=== PATIENT | female | born 1955 | race African-American/Black ===

== ENCOUNTER 2018-11-05 13:54 | Emergency (ER) | payer OTHER ==
[~2018-11-05] VITALS: Ht 167.6 cm; Wt 85.0 kg
[2018-11-05] MEDS ORDERED: SODIUM CHLORIDE 0.9% 1000ML BAG (SEPSIS BOLUS) IV ONE (14:15)
[2018-11-05] MEDS ORDERED: HYDROCORTISONE SOD SUCCINATE 100 MG/2 ML VIAL IV ONE (14:15)
[2018-11-05] MEDS ORDERED: VANCOMYCIN 1 G PREMIX 200 ML IV ONE (14:15)
[2018-11-05 14:49] LABS: BASOPHILS % 0.8 % (0.0-2.0); EOSINOPHILS % 2.1 % (0.0-5.0); HEMATOCRIT. 32.8 % (36.0-48.0); HEMOGLOBIN. 10.8 g/dL (12.0-16.0); LYMPHOCYTES % 28.7 % (20.0-50.0); MEAN CORPUSCULAR VOLUME 87.7 fL (81.0-99.0); MEAN PLATELET VOLUME 10.6 fl (7.4-10.4); MONOCYTES % 7.7 % (2.0-8.0); NEUTROPHILS % 60.7 % (40.0-76.0); PLATELET 95 x1000/uL (130-400); RED BLOOD CELL COUNT 3.73 mill/uL (4.2-5.4)
[2018-11-05 14:55] LABS: INR 1.3; PROTHROMBIN TIME 12.9 sec (9.6-11.0)
[2018-11-05 14:56] LABS: CHLORIDE 111 mEq/L (98-107)
[2018-11-05] MEDS: PIPERACILLIN/TAZ 3.375G PREMIX 50 ML IV ONE ×2 (15:02→15:17)
[2018-11-05 15:03] LABS: ETHANOL BLOOD < 10 mg/dL; LDL CHOLESTEROL 25 mg/dL (5-100)
[2018-11-05 15:04] LABS: CREATINE KINASE 66 IU/L (26-192)
[2018-11-05 15:08] LABS: CREATINE KINASE MB FRACTION < 1.0 ng/mL (0.5-3.6)
[2018-11-05] MEDS ORDERED: ASPIRIN 81MG TABLET PO ONE (15:45)
[2018-11-05 19:12] VITALS: BP 162/73
== END 2018-11-05 19:38 | disposition short-term general hospital (02) ==
LOC: ER 13:54 → EDBEDREQ 15:52 → EDBEDREQSVC 15:52 → CANBEDREQ 16:51 → ER 19:38
DX: G93.40 Encephalopathy, unspecified (principal); R55 Syncope and collapse; I95.9 Hypotension, unspecified; E11.9 Type 2 diabetes mellitus without complications; Z86.73 Personal history of transient ischemic attack (TIA), and cerebral infarction without residual deficits
CPT/HCPCS: 36415; 70450; 71045; 80053; 80320; 82550; 82553; 82962; 83605; 83721; 83735; 84145; 84443; 84484; 85025; 85610; 87040; 93005; 96360; 99291; J2543; J7030; Z7610; J1720; G0480